=== PATIENT | female | born 1975 | race Caucasian/White ===

== ENCOUNTER → 2016-12-27 | Outpatient (CLI) | payer SELFPAY ==
--- NOTE | 2016-12-27 13:15 | CT ---
EXAMINATION TYPE: CT abdomen w con DATE OF EXAM: 12/27/2016 1:05 PM COMPARISON: NONE HISTORY: epigastric pain CT DLP: 267.1 mGycm CONTRAST: CT scan of the abdomen and is performed with Oral Contrast and with IV Contrast, patient injected wit h 100 mL of Omnipaque 300. FINDINGS: LUNG BASES-: No visible nodule. No infiltrate. LIVER/GB: No calcified gallstones. The gallbladder wall does appear to be mildly thickened and the re may be a small amount of pericholecystic fluid. Consider ultrasound correlation. 8 mm lesion anter ior segment right hepatic lobe which appears to fill in partially and likely reflects a hemangioma. B iliary tree is of normal caliber. PANCREAS: No inflammation. No distinct mass. SPLEEN: No splenic enlargement. No lesion seen. ADRENALS: No nodule. No thickening. KIDNEYS/BLADDER: No hydronephrosis. No nephrolithiasis. No disctinct renal mass. Urinary bladder g rossly unremarkable. BOWEL: Normal appendix. Normal bowel caliber. No inflammation. LYMPH NODES: No greater than 1cm abdominal or pelvic lymph nodes are appreciated. AORTA: No significant abnormality. OSSEOUS STRUCTURES: No significant abnormality is seen. OTHER: No significant additional abnormality is seen. IMPRESSION: 1. Mild gallbladder wall thickening and the suggestion of the pericholecystic fluid. Correlate with u ltrasound. 2. Probable hepatic hemangioma.
== END | disposition home or self-care (01) ==
LOC: RADCTMAIN 12:02
PROVIDERS: ATTEND Family Medicine
DX: R10.9 Unspecified abdominal pain (principal)
CPT/HCPCS: 74160; Q9967

== ENCOUNTER → 2024-09-26 | Outpatient (CLI) | payer OTHER ==
[2024-09-26 15:53] LABS: Basophils # (A) 0.03 X 10*3/uL (0.00-0.10); Basophils % (A) 0.7 %; Eosinophils # (A) 0.08 X 10*3/uL (0.04-0.35); Eosinophils % (A) 1.8 %; HCT 45.7 % (37.2-46.3); HGB 14.9 g/dL (12.0-15.0); Lymphocytes # (A) 1.41 X 10*3/uL (0.90-5.00); Lymphocytes % (A) 31.6 %; MCH 30.3 pg (27.0-32.0); MCHC 32.6 g/dL (32.0-37.0); MCV 92.9 FL (80.0-97.0); Mean Platelet Volume 10.3 FL (9.5-12.2); Monocytes # (A) 0.36 X 10*3/uL (0.20-1.00); Monocytes % (A) 8.1 %; NRBC Per 100 WBC 0 X 10*3/uL (0.00-0.01); Neutrophils # (A) 2.57 X 10*3/uL (1.80-7.70); Neutrophils % (A) 57.6 %; Platelet Count 221 X 10*3/uL (140-440); RBC 4.92 X 10*6/uL (4.10-5.20); RDW 12.6 % (11.5-14.5); WBC 4.46 X 10*3/uL (4.50-10.00)
[2024-09-26 16:25] LABS: % Iron Saturation 78.25 (12.00-45.00); ALT 20 U/L (8-44); AST 19 U/L (13-35); Albumin 4.5 g/dL (3.8-4.9); Albumin/Globulin Ratio 2.37 Ratio (1.60-3.17); Alkaline Phosphatase 54 U/L (41-126); BUN/Creat Ratio 23.38 Ratio (12.00-20.00); Blood Urea Nitrogen 18.7 mg/dL (9.0-27.0); Calcium 9.7 mg/dL (8.7-10.3); Carbon Dioxide 27.9 mmol/L (21.6-31.8); Chloride 104 mmol/L (96-109); Chol/HDL Ratio 2.66 Ratio; Globulin 1.9 g/dL (1.6-3.3); Glucose 93 mg/dL (70-110); Iron 241 UG/DL (50-170); Potassium 4.3 mmol/L (3.5-5.5); Sodium 142 mmol/L (135-145); Total Bilirubin 0.8 mg/dL (0.3-1.2); Total Iron Binding Capacity 308 UG/DL (228-460); Total Protein 6.4 g/dL (6.2-8.2); VLDL Calculation 16.38 mg/dL (5.00-40.00)
[2024-09-26 16:40] LABS: Luteinizing Hormone 67.6 mIU/mL
== END | disposition home or self-care (01) ==
LOC: LABWHC1 08:45
PROVIDERS: ATTEND Family Medicine
DX: Z13.6 Encounter for screening for cardiovascular disorders (principal); N95.1 Menopausal and female climacteric states; R00.2 Palpitations
CPT/HCPCS: 36415; 80053; 80061; 82671; 82728; 83001; 83002; 83540; 83550; 84144; 84402; 84403; 84443; 85025